=== PATIENT | female | born 1995 | race Caucasian/White ===

== ENCOUNTER 2017-06-08 07:56 | Emergency (ER) | payer MEDICAID ==
[2017-06-08 08:01] VITALS: RESP 18
[2017-06-08] MEDS ORDERED: Albuterol-Ipratrop 3 mg / 0.5 (3 ml) UD INH STA (08:11)
--- NOTE | 2017-06-08 09:20 | ED PDOC ---
HPI: CCC, URI, Sore Throat Time Seen by Provider: 06/08/17 08:03 Chief Complaint (Nursing): Cough, Cold, Congestion Chief Complaint (Provider): cough, body aches History Per: Patient History/Exam Limitations: no limitations Onset/Duration Of Symptoms: Days (4), Gradual Current Symptoms Are (Timing): Still Present Location Of Pain: Throat, Diffuse Myalgias, Headache Sick Contacts (Context): None Associated Symptoms: Chills, Sore Throat, Cough, Myalgias, Nasal Congestion, Nausea. denies: Sputum, Neck Pain, Diarrhea Severity: Moderate Additional Complaint(s): 21yo female c/o flu like symptoms including body aches, cough, sore throat, mild SOB/wheeze for 3-4 days. Denies syncope, orthopnea, edema, severe headache or neck pain. No flu shot this year. Past Medical History Reviewed: Historical Data, Nursing Documentation, Vital Signs Vital Signs: Last Vital Signs Temp 97.9 F 06/08/17 07:59 Pulse 79 06/08/17 07:59 Resp 18 06/08/17 07:59 BP 134/94 H 06/08/17 07:59 Pulse Ox 98 06/08/17 07:59 - Medical History PMH: Asthma (mild intermittent) - Family History Family History: States: Unknown Family Hx - Social History Current smoker - smoking cessation education provided: No - Home Medications Home Medications: Ambulatory Orders Medication Instructions Recorded Albuterol HFA [Ventolin HFA 90 1 - 2 puff IH Q4 PRN #1 inhaler 06/08/17 mcg/actuation (8 g)] Azithromycin [Zithromax] 250 mg PO DAILY #6 tab 06/08/17 Oseltamivir [Tamiflu] 75 mg PO BID #10 cap 06/08/17 Prednisone 50 mg PO DAILY #4 tab 06/08/17 - Allergies Allergies/Adverse Reactions: Allergies Allergy/AdvReac Type Severity Reaction Status Date / Time No Known Allergies Allergy Verified 06/08/17 07:59 Review of Systems Constitutional: Positive for: Chills, Malaise ENT: Positive for: Nose Discharge (clear), Throat Pain. Negative for: Ear Pain , Throat Swelling Cardiovascular: Negative for: Chest Pain, Palpitations Respiratory: Positive for: Cough, Shortness of Breath, Wheezing Gastrointestinal: Negative for: Abdominal Pain Genitourinary Female: Negative for: Dysuria, Frequency Musculoskeletal: Positive for: Other (myalgia). Negative for: Neck Pain, Back Pain Skin: Negative for: Rash, Lesions, Jaundice Neurological: Positive for: Headache. Negative for: Weakness, Numbness, Confusion, Seizures Physical Exam - Reviewed Nursing Documentation Reviewed: Yes Vital Signs Reviewed: Yes - Physical Exam Appears: Positive for: Well, Non-toxic, No Acute Distress Head Exam: Positive for: ATRAUMATIC, NORMAL INSPECTION, NORMOCEPHALIC Skin: Positive for: Normal Color, Warm, DRY Eye Exam: Positive for: EOMI, Normal appearance, PERRL ENT: Positive for: Normal ENT Inspection Neck: Positive for: Normal, Painless ROM Cardiovascular/Chest: Positive for: Regular Rate, Rhythm Respiratory: Positive for: Wheezing (trace good air entry). Negative for: Respiratory Distress Gastrointestinal/Abdominal: Positive for: Normal Exam, Bowel Sounds, Soft. Negative for: Tenderness Back: Positive for: Normal Inspection Extremity: Positive for: Normal ROM Neurologic/Psych: Positive for: Alert, Oriented - ECG O2 Sat by Pulse Oximetry: 98 Pulse Ox Interpretation: Normal - Radiology X-Ray: Interpreted by Me X-Ray Interpretation: No Acute Disease Medical Decision Making Medical Decision Making: given symptoms treat empiric for flu also course azithromycin given asthmatic history Disposition - Clinical Impression Clinical Impression: Influenza-like symptoms - Patient ED Disposition Is Patient to be Admitted: No Counseled Patient/Family Regarding: Studies Performed, Diagnosis, Need For Followup, Rx Given - Disposition Disposition: Routine/Home Disposition Time: 09:10 Condition: STABLE Prescriptions: Albuterol HFA [Ventolin HFA 90 mcg/actuation (8 g)] 1 - 2 puff IH Q4 PRN #1 inhaler PRN Reason: Shortness Of Breath Azithromycin [Zithromax] 250 mg PO DAILY #6 tab Oseltamivir [Tamiflu] 75 mg PO BID #10 cap Prednisone 50 mg PO DAILY #4 tab Instructions: Flu, Adult (DC), Asthma in Adults Forms: [facility] (Yoruba), [facility] ED School/Work Excuse
[2017-06-08 09:53] VITALS: BP 119/67; PULSE 76; TEMP 98; O2SAT 100
--- NOTE | 2017-06-08 11:02 | RAD ---
HISTORY: cough flu COMPARISON: No prior. TECHNIQUE: Chest PA and lateral FINDINGS: LUNGS: No active pulmonary disease. PLEURA: No significant pleural effusion identified. No pneumothorax apparent. CARDIOVASCULAR: Normal. OSSEOUS STRUCTURES: No significant abnormalities. VISUALIZED UPPER ABDOMEN: Normal. OTHER FINDINGS: None. IMPRESSION: No active disease.
== END 2017-06-08 09:30 | disposition home or self-care (01) ==
LOC: H.ER 07:56
DX: J11.1 Influenza due to unidentified influenza virus with other respiratory manifestations (principal); J45.909 Unspecified asthma, uncomplicated